=== PATIENT | male | born 1960 | race African-American/Black ===

== ENCOUNTER 2018-04-06 09:10 | Day surgery (SDC) | payer OTHER, BC ==
[~2018-04-06] VITALS: Ht 174 cm; Wt 85.3 kg
[2018-04-06 09:35] VITALS: BP 122/81; PULSE 73; TEMP 98.3
[2018-04-06] MEDS ORDERED: PRAVACHOL80 MG PO (09:40)
[2018-04-06] MEDS ORDERED: CALCIUM CARBON650 M2 PO (09:41)
[2018-04-06] MEDS ORDERED: VITAMIN D PO (09:41)
[2018-04-06] MEDS ORDERED: [UNRECOGNIZED DRUG - OTHER] (09:42)
[2018-04-06] MEDS ORDERED: BLOOD PRESSURE TAB PO (09:43)
[2018-04-06] MEDS ORDERED: MOBIC15 MG PO (09:45)
[2018-04-06 10:55] VITALS: BP 108/77; PULSE 67; TEMP 97.8
[2018-04-06 11:10] VITALS: BP 107/78; PULSE 55
[2018-04-06 11:25] VITALS: BP 110/72; PULSE 57
[2018-04-06 11:40] VITALS: BP 115/76; PULSE 52
== END 2018-04-06 11:50 | disposition home or self-care (01) ==
LOC: SDCO 09:10
DX: Z12.11 Encounter for screening for malignant neoplasm of colon (principal); D12.0 Benign neoplasm of cecum; J45.909 Unspecified asthma, uncomplicated; K21.9 Gastro-esophageal reflux disease without esophagitis; E78.00 Pure hypercholesterolemia, unspecified; I10 Essential (primary) hypertension; K44.9 Diaphragmatic hernia without obstruction or gangrene
CPT/HCPCS: OP; J2250; J2405; J3010; J7030